=== PATIENT | male | born 1945 | race Caucasian/White ===

== ENCOUNTER → 2017-04-25 | Outpatient (CLI) | payer MEDICARE, BC ==
[~2017-04-25] MED LIST: NO HOME MEDICATIONS
== END ==
LOC: COL.VAS 10:04
DX: I35.1 Nonrheumatic aortic (valve) insufficiency (principal)

== ENCOUNTER 2020-05-23 12:55 | Emergency (ER) | payer MEDICARE, BC ==
[~2020-05-23] VITALS: Ht 177.8 cm; Wt 80.9 kg
[2020-05-23 13:01] VITALS: BP 146/87; TEMP 98
[2020-05-23 15:17] VITALS: PULSE 87
== END 2020-05-23 15:17 | disposition home or self-care (01) ==
LOC: COL.ER 12:55
DX: S63.285A Dislocation of proximal interphalangeal joint of left ring finger, initial encounter (principal); W01.0XXA Fall on same level from slipping, tripping and stumbling without subsequent striking against object, initial encounter; Y92.410 Unspecified street and highway as the place of occurrence of the external cause

== ENCOUNTER → 2021-03-25 | Outpatient (CLI) | payer MEDICARE, BC | LOC: COL.RAD 07:42 | DX: Z13.6 Encounter for screening for cardiovascular disorders (principal); I70.0 Atherosclerosis of aorta ==